=== PATIENT | male | born 1945 | race Caucasian/White ===

== ENCOUNTER → 2020-02-13 | Outpatient (CLI) | payer OTHER ==
[~2020-02-13] MED LIST: ASPIRIN325 PO; COLACE100 MG PO; FLOMAX0.4 MG PO; KEFLEX500 MG PO; NORVASC10 MG PO; OXYCODONE HCL 55 MG PO; SYNTHROID25 MCG PO; TRAMADOL 50 MG50 MG PO; TRIAMCINOLONE A80 G2 TOP; XARELTO10 MG PO
== END ==
LOC: SPEECH 13:33
DX: R13.12 Dysphagia, oropharyngeal phase (principal); E03.9 Hypothyroidism, unspecified; M19.90 Unspecified osteoarthritis, unspecified site; Z79.899 Other long term (current) drug therapy